=== PATIENT | female | born 1985 | race Caucasian/White ===

== ENCOUNTER 2017-10-08 05:37 | Inpatient (IN) | payer BC ==
[2017-10-08] VITALS (43 sets, daily range): BP systolic 118–174; BP diastolic 71–108; PULSE 59–83; TEMP 97.6–98.6
[~2017-10-08] VITALS: Ht 162.6 cm; Wt 132.3 kg
[2017-10-08] MEDS ORDERED: NORMODYNE200 MG PO (06:36)
[2017-10-08] MEDS ORDERED: SYNTHROID 0.0.025 MG PO (06:39)
[2017-10-08] MEDS ORDERED: ADALAT CC90 MG PO (06:40)
[2017-10-08] MEDS ORDERED: APRESOLINE 10MG10 MG PO (06:41)
[2017-10-08] MEDS ORDERED: ASPIRIN 81M81 MG/TA2 PO (06:42)
[2017-10-08] MEDS ORDERED: ALBUTEROL S0.4 MG/ML PO (06:43)
[2017-10-08 06:54] LABS: BASO # 0.1 (0.0-0.2); BASO % 0.4 % (0.0-2.0); EOS # 0.1 (0.0-0.7); EOS % 0.6 % (0-4.0); GRAN # 14.9 (1.4-6.5); GRAN % 81.8 % (42.2-75.2); LYMPH % 10.8 % (20.0-51.0); MEAN CELL VOLUME 91 fl (80.0-100.0); MEAN CORPUSCULAR HGB CONC 35 g/dl (33.0-37.0); MEAN PLATELET VOLUME 10.5 fl (7.4-10.4); MONO % 5.6 % (1.7-9.3); PLATELET COUNT 197 K/mm3 (130-400); RED BLOOD COUNT 3.61 M/mm3 (4.10-5.30); REDCELL DISTRIBUTION WIDTH-CV 13.2 % (11.5-14.5)
[2017-10-08 06:59] LABS: HEMOGLOBIN 11.4 g/dl (12.5-16.0); MEAN CORPUSCULAR HEMOGLOBIN 32 pg (27.0-31.0)
[2017-10-08 08:05] LABS: ALBUMIN 2.8 gm/dL (3.5-5.0); BILIRUBIN,TOTAL 0.3 mg/dL (0.0-1.0); CALCIUM 8.2 mg/dL (8.4-10.2); CREATININE, serum 1.56 mg/dL (0.52-1.25); POTASSIUM 3.9 mmol/L (3.4-5.0)
[2017-10-08] MEDS ORDERED: PERCOCET 325 MG1 TA2 PO (14:29)
[2017-10-08] MEDS ORDERED: TYLENOL 325MG325 MG PO (14:29)
[2017-10-08 17:19] LABS: BASO # 0.1 (0.0-0.2); BASO % 0.3 % (0.0-2.0); EOS # 0.1 (0.0-0.7); EOS % 0.3 % (0-4.0); GRAN # 16.3 (1.4-6.5); GRAN % 84.1 % (42.2-75.2); LYMPH # 1.8 (1.2-3.4); MEAN CELL VOLUME 90 fl (80.0-100.0); MEAN CORPUSCULAR HGB CONC 34 g/dl (33.0-37.0); MONO # 1.1 (0.1-0.6); MONO % 5.7 % (1.7-9.3); PLATELET COUNT 143 K/mm3 (130-400); RED BLOOD COUNT 3.38 M/mm3 (4.10-5.30); REDCELL DISTRIBUTION WIDTH-CV 13.1 % (11.5-14.5)
[2017-10-08 17:20] LABS: HEMATOCRIT 30.5 % (37.0-47.0); HEMOGLOBIN 10.5 g/dl (12.5-16.0); MEAN CORPUSCULAR HEMOGLOBIN 31 pg (27.0-31.0)
[2017-10-08 17:24] LABS: ALBUMIN 2.6 gm/dL (3.5-5.0); BILIRUBIN,TOTAL 0.5 mg/dL (0.0-1.0); CALCIUM 7.9 mg/dL (8.4-10.2); CREATININE, serum 1.52 mg/dL (0.52-1.25); POTASSIUM 4.1 mmol/L (3.4-5.0); TOTAL PROTEIN 5.4 gm/dL (6.4-8.2)
[2017-10-08 17:28] LABS: MAGNESIUM 5.8 mg/dL (1.6-2.3)
[2017-10-09] VITALS (18 sets, daily range): BP systolic 135–168; BP diastolic 80–103; PULSE 74–94; TEMP 98.3–98.8
[2017-10-09 07:08] LABS: ALBUMIN 2.6 gm/dL (3.5-5.0); BILIRUBIN,TOTAL 0.3 mg/dL (0.0-1.0); CALCIUM 7.5 mg/dL (8.4-10.2); CREATININE, serum 1.56 mg/dL (0.52-1.25); POTASSIUM 3.9 mmol/L (3.4-5.0); TOTAL PROTEIN 5.4 gm/dL (6.4-8.2)
[2017-10-09 07:12] LABS: BASO # 0.1 (0.0-0.2); BASO % 0.3 % (0.0-2.0); EOS # 0.1 (0.0-0.7); EOS % 0.5 % (0-4.0); GRAN # 14.1 (1.4-6.5); GRAN % 82.3 % (42.2-75.2); LYMPH # 1.8 (1.2-3.4); LYMPH % 10.7 % (20.0-51.0); MEAN CELL VOLUME 90 fl (80.0-100.0); MEAN CORPUSCULAR HGB CONC 35 g/dl (33.0-37.0); MEAN PLATELET VOLUME 10.1 fl (7.4-10.4); MONO % 5.6 % (1.7-9.3); PLATELET COUNT 123 K/mm3 (130-400); RED BLOOD COUNT 3.28 M/mm3 (4.10-5.30); REDCELL DISTRIBUTION WIDTH-CV 13.2 % (11.5-14.5)
[2017-10-09 07:35] LABS: HEMATOCRIT 29.5 % (37.0-47.0); HEMOGLOBIN 10.2 g/dl (12.5-16.0); MEAN CORPUSCULAR HEMOGLOBIN 31 pg (27.0-31.0)
[2017-10-10 01:45] VITALS: BP 153/97; PULSE 82; TEMP 98.1
[2017-10-10 07:22] LABS: BASO % 0.2 % (0.0-2.0); EOS # 0.1 (0.0-0.7); EOS % 0.9 % (0-4.0); GRAN # 11.8 (1.4-6.5); GRAN % 78.7 % (42.2-75.2); LYMPH # 1.8 (1.2-3.4); LYMPH % 12.3 % (20.0-51.0); MEAN CELL VOLUME 91 fl (80.0-100.0); MEAN CORPUSCULAR HGB CONC 34 g/dl (33.0-37.0); MEAN PLATELET VOLUME 10.4 fl (7.4-10.4); MONO % 6.6 % (1.7-9.3); PLATELET COUNT 101 K/mm3 (130-400); RED BLOOD COUNT 3.09 M/mm3 (4.10-5.30); REDCELL DISTRIBUTION WIDTH-CV 13.2 % (11.5-14.5)
[2017-10-10 07:32] LABS: HEMATOCRIT 28.2 % (37.0-47.0); HEMOGLOBIN 9.7 g/dl (12.5-16.0); MEAN CORPUSCULAR HEMOGLOBIN 31 pg (27.0-31.0)
[2017-10-10 07:39] LABS: ALBUMIN 2.7 gm/dL (3.5-5.0); BILIRUBIN,TOTAL 0.2 mg/dL (0.0-1.0); CALCIUM 7.7 mg/dL (8.4-10.2); CREATININE, serum 1.8 mg/dL (0.52-1.25); POTASSIUM 3.6 mmol/L (3.4-5.0); TOTAL PROTEIN 5.7 gm/dL (6.4-8.2)
[2017-10-10 08:33] VITALS: BP 152/101; PULSE 89; TEMP 97.9
[2017-10-10 12:14] VITALS: BP 137/94; PULSE 87; TEMP 98.1
[2017-10-10 16:30] VITALS: BP 135/74; PULSE 96; TEMP 98.3
[2017-10-10 19:00] VITALS: BP 130/82; PULSE 84; TEMP 98.7
[2017-10-10 19:30] VITALS: BP 134/82; PULSE 80
[2017-10-11 01:30] VITALS: BP 131/80; PULSE 85; TEMP 98.3
[2017-10-11 07:20] LABS: BASO % 0.2 % (0.0-2.0); EOS # 0.2 (0.0-0.7); EOS % 1.7 % (0-4.0); GRAN # 10.2 (1.4-6.5); GRAN % 75.3 % (42.2-75.2); LYMPH # 2.1 (1.2-3.4); LYMPH % 15.6 % (20.0-51.0); MEAN CELL VOLUME 91 fl (80.0-100.0); MEAN CORPUSCULAR HGB CONC 34 g/dl (33.0-37.0); MEAN PLATELET VOLUME 11.1 fl (7.4-10.4); MONO # 0.8 (0.1-0.6); MONO % 5.8 % (1.7-9.3); PLATELET COUNT 127 K/mm3 (130-400); RED BLOOD COUNT 2.85 M/mm3 (4.10-5.30); REDCELL DISTRIBUTION WIDTH-CV 13.3 % (11.5-14.5)
[2017-10-11 07:26] LABS: HEMOGLOBIN 8.8 g/dl (12.5-16.0); MEAN CORPUSCULAR HEMOGLOBIN 31 pg (27.0-31.0)
[2017-10-11 07:43] LABS: ALANINE AMINOTRANSFERASE 61 U/L (9-52); ALBUMIN 2.4 gm/dL (3.5-5.0); ALKALINE PHOSPHATASE 100 U/L (50-136); ANION GAP 6 mmol/L (7-16); AST,SGOT 52 U/L (15-37); BILIRUBIN,TOTAL < 0.1 mg/dL (0.0-1.0); BLOOD UREA NITROGEN 30 mg/dL (7-17); CALCIUM 8.1 mg/dL (8.4-10.2); CARBON DIOXIDE 27 mmol/L (22-30); CHLORIDE 104 mmol/L (98-107); CREATININE, serum 1.54 mg/dL (0.52-1.25); GLUCOSE 74 mg/dL (74-106); POTASSIUM 3.7 mmol/L (3.4-5.0); SODIUM 137 mmol/L (137-145); TOTAL PROTEIN 5.2 gm/dL (6.4-8.2)
[2017-10-11 08:10] VITALS: BP 140/83; PULSE 87; TEMP 97.4
[2017-10-11 17:55] VITALS: BP 146/83; PULSE 80; TEMP 97.6
[2017-10-11 20:10] VITALS: BP 137/90; PULSE 88; TEMP 98.8
[2017-10-11 23:07] LABS: URINE PROTEIN:CREAT RATIO 5.63 (0.00-0.14)
[2017-10-12 00:50] VITALS: BP 148/104; PULSE 91; TEMP 98.2
[2017-10-12 04:35] VITALS: BP 127/81; PULSE 87; TEMP 97.8
[2017-10-12 06:33] LABS: HEMATOCRIT 24.7 % (37.0-47.0); HEMOGLOBIN 8.3 g/dl (12.5-16.0); MEAN CELL VOLUME 93 fl (80.0-100.0); MEAN CORPUSCULAR HEMOGLOBIN 31 pg (27.0-31.0); MEAN CORPUSCULAR HGB CONC 34 g/dl (33.0-37.0); MEAN PLATELET VOLUME 10.4 fl (7.4-10.4); PLATELET COUNT 157 K/mm3 (130-400); RED BLOOD COUNT 2.66 M/mm3 (4.10-5.30); REDCELL DISTRIBUTION WIDTH-CV 13.2 % (11.5-14.5)
[2017-10-12 06:42] LABS: ALANINE AMINOTRANSFERASE 112 U/L (9-52); ALBUMIN 2.4 gm/dL (3.5-5.0); ALKALINE PHOSPHATASE 95 U/L (50-136); ANION GAP 4 mmol/L (7-16); AST,SGOT 95 U/L (15-37); BILIRUBIN,TOTAL < 0.1 mg/dL (0.0-1.0); BLOOD UREA NITROGEN 24 mg/dL (7-17); CALCIUM 8.2 mg/dL (8.4-10.2); CARBON DIOXIDE 28 mmol/L (22-30); CHLORIDE 103 mmol/L (98-107); CREATININE, serum 1.54 mg/dL (0.52-1.25); GLUCOSE 77 mg/dL (74-106); POTASSIUM 3.9 mmol/L (3.4-5.0); SODIUM 135 mmol/L (137-145)
[2017-10-12 07:45] LABS: EOSINOPHIL 3 % (0-4); LYMPHOCYTE 12 % (20.0-51.0); METAMYELOCYTE 1 % (0-0); NEUTROPHILS 82 % (42.0-75.2); PLATELET ESTIMATE NORMAL (NORMAL)
[2017-10-12] MEDS ORDERED: NORMODYNE200 MG PO (08:51)
[2017-10-12] MEDS ORDERED: ZESTRIL 10MG10 MG PO (08:51)
[2017-10-12 10:18] VITALS: BP 148/92; PULSE 70; TEMP 98.1
== END 2017-10-12 11:30 | disposition home or self-care (01) | DRG 765 ==
LOC: OB 05:37 → LDR 05:37 → OB 10-09 08:20
PROVIDERS: Obstetrics & Gynecology
PROC: 10D00Z1 Extraction of Products of Conception, Low, Open Approach (ICD-10-PCS; principal; 2017-10-08)
DX: O11.4 Pre-existing hypertension with pre-eclampsia, complicating childbirth (principal); N17.9 Acute kidney failure, unspecified; E87.1 Hypo-osmolality and hyponatremia; Z68.43 Body mass index [BMI] 50.0-59.9, adult; Z3A.35 35 weeks gestation of pregnancy; Z37.0 Single live birth; I12.9 Hypertensive chronic kidney disease with stage 1 through stage 4 chronic kidney disease, or unspecified chronic kidney disease; N18.2 Chronic kidney disease, stage 2 (mild); O62.2 Other uterine inertia; O99.214 Obesity complicating childbirth; Z85.850 Personal history of malignant neoplasm of thyroid; O99.284 Endocrine, nutritional and metabolic diseases complicating childbirth; E89.0 Postprocedural hypothyroidism; O99.02 Anemia complicating childbirth
CPT/HCPCS: J0690; J2405; J2590; J3010; J3475; J7120

== ENCOUNTER 2018-01-23 13:38 | Emergency (ER) | payer BC ==
[~2018-01-23] VITALS: Ht 165.1 cm; Wt 75.0 kg
[~2018-01-23 13:38] MED LIST: ADALAT CC90 MG PO; ALBUTEROL S0.4 MG/ML PO; APRESOLINE 10MG10 MG PO; ASPIRIN 81M81 MG/TA2 PO; NORMODYNE200 MG PO; PERCOCET 325 MG1 TA2 PO; SYNTHROID 0.0.025 MG PO; TYLENOL 325MG325 MG PO; ZESTRIL 10MG10 MG PO
[2018-01-23 13:42] VITALS: BP 147/94; TEMP 99.7
[2018-01-23] MEDS ORDERED: NORMODYNE300 MG PO (14:20)
[2018-01-23] MEDS ORDERED: SYNTHROID0.2 MG/TAB PO (14:21)
[2018-01-23] MEDS ORDERED: SPRINTEC 35 MCG1 TAB PO (14:21)
[2018-01-23] MEDS ORDERED: PRINIVIL40 MG PO (14:21)
[2018-01-23 14:43] VITALS: PULSE 74
== END 2018-01-23 14:38 | disposition home or self-care (01) ==
LOC: COL.ER 13:38
DX: S91.312A Laceration without foreign body, left foot, initial encounter (principal); N18.9 Chronic kidney disease, unspecified; I12.9 Hypertensive chronic kidney disease with stage 1 through stage 4 chronic kidney disease, or unspecified chronic kidney disease; W20.8XXA Other cause of strike by thrown, projected or falling object, initial encounter; Y92.009 Unspecified place in unspecified non-institutional (private) residence as the place of occurrence of the external cause

== ENCOUNTER 2019-04-15 14:17 | Outpatient (CLI) | payer OTHER, BC ==
[~2019-04-15] VITALS: Ht 165.1 cm; Wt 116.8 kg
[~2019-04-15 14:17] MED LIST changes: +BYSTOLIC10 MG; +ILOTYCIN5 MG/GM OD; +LOTREL 10 MG-201 CAP; +NORCO 325 MG-51 TAB PO; +NORMODYNE300 MG PO; +PRINIVIL40 MG PO; +SPRINTEC 35 MCG1 TAB; +SPRINTEC 35 MCG1 TAB PO; +SYNTHROID0.175 MG; +SYNTHROID0.2 MG/TAB PO
[2019-04-15] MEDS ORDERED: MIRENA52 MG IY (14:39)
[2019-04-15 14:40] VITALS: BP 118/78; PULSE 79; TEMP 97.8
--- NOTE | 2019-04-15 15:00 | NUR ---
SPOKE WITH JARRETT IN PHARMACY IN REGARDS TO THE PROVIDER ORDER STATING TO RUN OVER 1 HOUR. PER LITERATURE, IT IS OK TO PUSH OVER 15 MINUTES. SPOKE WITH THE PT IN REGARDS TO DURATION AND SHE WAS OK WITH ADMINISTERING OVER THE 15 MINUTES. PT TOLERATED WELL. IV DISCONTINUED WITH CATHETER TIP INTACT. NO PHLEBITIS OR INFILTRATION.
== END 2019-04-15 15:53 | disposition home or self-care (01) ==
LOC: EUO 14:17
DX: C73 Malignant neoplasm of thyroid gland (principal)